=== PATIENT | male | born 1955 | race African-American/Black ===

== ENCOUNTER 2018-04-02 04:54 | Emergency (ER) | payer MEDICAID ==
[~2018-04-02] VITALS: Ht 188 cm; Wt 117.9 kg
[~2018-04-02 04:54] MED LIST: ACET-787 PO; DIAZ10TA7 PO; GLIM2TAB PO; LISI5TAB18 PO; OMEP40EC1 PO
[2018-04-02 04:57] VITALS: BP 179/90
[2018-04-02 05:07] VITALS: BP 179/90
--- NOTE | 2018-04-02 05:07 | NUR ---
PT PRESENTS TO ED WITH C/O NECK PAIN S/P FALL IN SHOWER X 2 DAYS AGO. PT DENIES LOC. PT IS AWAKE AND ALERT TO PERSON, PLACE, TIME, AND EVENT. PT IS ALSO C/O COUGH AND FLU LIKE SYMPTOMS X 1 WEEK. PT DENIES N/V. PT IS WHEELCHAIR BOUND DUE TO PARAPLEGIA.
--- NOTE | 2018-04-02 05:33 | NUR ---
PATIENT LEFT WITHOUT BEING SEEN BY DR. FERRELL. NO FURTHER CARE PROVIDED FOR PATIENT.
== END 2018-04-02 05:33 | disposition left against medical advice (07) ==
LOC: MED 04:54
DX: S09.90XA Unspecified injury of head, initial encounter (principal); Z53.21 Procedure and treatment not carried out due to patient leaving prior to being seen by health care provider

== ENCOUNTER 2018-04-02 05:50 | Emergency (ER) | payer MEDICAID ==
[~2018-04-02] VITALS: Ht 188 cm; Wt 117.9 kg
[2018-04-02 05:50] VITALS: BP 164/90
--- NOTE | 2018-04-02 05:50 | NUR ---
PATIENT RECHECKED IN, TO ER BED 12.
[2018-04-02 06:15] VITALS: BP 164/90
--- NOTE | 2018-04-02 06:15 | NUR ---
PT PRESENTS TO ED W C/O NECK PAIN S/P FALL IN SHOWER X 2 DAYS AGO. PT DENIES LOC. PT REPORTS 8/10 PAIN. PT HAS FULL ROM OF NECK. PT DENIES ANY DIZZINES OR N/V. PT ALSO C/O DRY, NON PRODUCTIVE COUGH X 1 WEEK. PT DENIES SOB. PT IS WHEELCHAIR BOUND DUE TO PARAPLEGIA. PENDING MD CUTLER.
--- NOTE | 2018-04-02 06:28 | NUR ---
PATIENT LEFT WITHOUT BEING SEEN BY DR. FERRELL. NO FURTHER CARE PROVIDED FOR PATIENT.
== END 2018-04-02 06:28 | disposition left against medical advice (07) ==
LOC: MED 05:50
DX: S09.90XA Unspecified injury of head, initial encounter (principal); Z53.21 Procedure and treatment not carried out due to patient leaving prior to being seen by health care provider